=== PATIENT | female | born 1985 | race Caucasian/White ===

== ENCOUNTER 2022-09-15 11:32 | Emergency (ER) | payer BC ==
[2022-09-15 11:41] VITALS: BP 124/78; PULSE 107; RESP 20; TEMP 98; BMI 24.7
[2022-09-15] MEDS ORDERED: LIDOCAINE 5% TOPICAL PATCH TP ONE (12:19)
[2022-09-15] MEDS ORDERED: KETOROLAC TROMETHAMINE 30 MG/1 ML VIAL IM ONE (12:19)
[2022-09-15] MEDS ORDERED: ACETAMINOPHEN 500 MG TABLET (FP) PO ONE (12:19)
[2022-09-15] MEDS ORDERED: KETOROLAC TROMETHAMINE 30 MG/1 ML VIAL ONE (12:29)
[2022-09-15] MEDS ORDERED: LIDOCAINE 5% TOPICAL PATCH ONE (12:29)
[2022-09-15] MEDS ORDERED: ACETAMINOPHEN 500 MG TABLET (FP) ONE (12:30)
[2022-09-15] MEDS ORDERED: LIDOCAINE PATCH REMOVAL MC SCH (22:00)
== END 2022-09-15 13:32 | disposition home or self-care (01) ==
LOC: JERFT 11:32
PROC: 3E0233Z Introduction of Anti-inflammatory into Muscle, Percutaneous Approach (ICD-10-PCS; principal; 2022-09-15)
DX: M54.50 Low back pain, unspecified (principal)
CPT/HCPCS: 84703; 99284-25